=== PATIENT | female | born 1980 | race Caucasian/White ===

== ENCOUNTER 2019-12-04 10:57 | Emergency (ER) | payer OTHER ==
[~2019-12-04] VITALS: Ht 167.6 cm; Wt 61.2 kg
--- NOTE | ~2019-12-04 | EKG ---
[place] [address] ELECTROCARDIOGRAM REPORT Name: DANILO SILVA Room: [facility]#: [id number] Admission: 12/04/19 Attend Phys: Discharge: 12/04/19 Date of : 80 Date of Service: 12/04/19 1122 Report #: [id number] THIS REPORT FOR: cc: Leif Howard Steve T. DO Epiphany, Epiphany MD ~ THIS REPORT FOR: //name// [facility] ED Test Date: 2019-12-04 Test Time: 11:22:35 Pat Name: DANILO SAUNDERSADEEL Department: Room: Gender: F Calibration Technician: OPAL : 1980 Requested By: Refugio Sierra Order Number: [id number] MD: Measurements Intervals [place] Rate: 66 P: 49 [place]: 129 QRS: 79 QRSD: 127 T: 64 QT: 435 QTc: 456 Interpretive Statements Sinus rhythm Nonspecific intraventricular conduction delay No previous ECG available for comparison [email or web address] By: 21 21 Epiphany Epiphany, /EPI
[~2019-12-04 10:57] MED LIST: DIFLUCAN; METHERGINE
[2019-12-04 11:51] LABS: ABSOLUTE EOSINOPHILS 0.1 thou/uL (0.0-0.7); ABSOLUTE LYMPHOCYTES 1.2 thou/uL (0.8-5.3); ABSOLUTE MONOCYTES 0.3 thou/uL (0.0-1.2); ABSOLUTE NEUTROPHILS 3.2 thou/uL (1.6-8.1); BASOPHILS 0.8 %; EOSINOPHILS 1.9 %; HEMATOCRIT 42.9 % (37.0-47.0); HEMOGLOBIN 14.8 gm/dL (12.0-15.0); LYMPHOCYTES 24.1 %; MCH 29.6 pg (26.0-34.0); MCHC 34.6 g/dL (28.0-37.0); MCV 85.6 fL (80.0-100.0); MONOCYTES 7.1 %; MPV 10.1 fl. (7.2-11.1); NUCLEATED RBCS 0 /100WBC; PLATELET COUNT* 178 thou/uL (150-400); POLYS 66.1 %; RBC 5.01 mil/uL (4.20-5.00); RDW-CV 12.8 % (10.5-14.5); WBC 4.8 thou/uL (4.0-11.0)
[2019-12-04 11:59] LABS: CREATININE 0.8 mg/dL (0.6-1.3); POTASSIUM 3.7 mmol/L (3.5-5.1)
[2019-12-04 12:03] LABS: ALBUMIN 3.9 g/dL (3.4-5.0); TOTAL BILIRUBIN 2.5 mg/dL (<0.1-1.0); TOTAL PROTEIN 6.9 g/dL (6.4-8.2)
[2019-12-04 12:27] LABS: URINE BILIRUBIN NEGATIVE (Negative); URINE BLOOD NEGATIVE (Negative); URINE CLARITY CLEAR; URINE COLOR YELLOW; URINE GLUCOSE-RANDOM NEGATIVE (Negative); URINE KETONES NEGATIVE (Negative); URINE LEUKOCYTES-REFLEX NEGATIVE (Negative); URINE NITRITE-REFLEX NEGATIVE (Negative); URINE PROTEIN NEGATIVE (Negative); URINE SPECIFIC GRAVITY 1.015 (1.005-1.030); URINE UROBILINOGEN 0.2 E.U./dl (0.2-1.0)
[2019-12-04 12:48] VITALS: BP 98/53
== END 2019-12-04 12:49 | disposition home or self-care (01) ==
LOC: M.ERS 10:57
PROVIDERS: Emergency Medicine Emergency Medical Services; Nurse Practitioner Family
DX: R42 Dizziness and giddiness (principal)